=== PATIENT | male | born 1960 | race Caucasian/White ===

== ENCOUNTER 2018-10-26 07:51 | Outpatient (CLI) | payer OTHER ==
--- NOTE | 2018-10-26 11:14 | MRI ---
CERVICAL SPINE MRI NONCONTRAST: Indication: Right shoulder bursitis. Neck pain. Right upper extremity radicular pain. FINDINGS: There is no acute marrow edema, compression fracture, or significant subluxation. There is mild degen erative hypertrophy at the atlantodental articulation. No significant central canal stenosis at C1-2. C2-3 level reveals no high grade central canal or neural foraminal stenosis. C3-4: Mild broad based disc bulge effaces intrathecal sac without significant cord compromise. No hig h grade foraminal stenosis. C4-5: No significant compromise of the central canal or neural foramina. C5-6: No significant compromise of the central canal or neural foramina. C6-7: No significant compromise of the central canal or neural foramina. C7-T1: Minimal disc bulge. No significant central canal or neural foraminal stenosis. Evaluation of the cervical spine cord signal reveals no significant intramedullary abnormality or int rinsic expansile process. IMPRESSION: Mild degenerative disc disease of the cervical spine without associated central canal or neural talha inal stenosis of significance. POS: [place]
== END 2018-10-26 07:52 | disposition home or self-care (01) ==
LOC: SCSMRI 07:51
PROVIDERS: ATTEND Orthopaedic Surgery
DX: M75.51 Bursitis of right shoulder (principal); M50.30 Other cervical disc degeneration, unspecified cervical region
CPT/HCPCS: 72141

== ENCOUNTER 2019-01-27 00:27 | Outpatient (CLI) | payer OTHER ==
[2019-01-27 17:48] LABS: #Basophils 0.2 thou/uL (0.0-0.2); #Eosinphils 0.4 thou/uL (0.0-0.7); #Lymphocytes 4.2 thou/uL (1.20-3.40); #Monocytes 1.3 thou/uL (0.11-0.59); #Neutrophils 6.8 thou/uL (1.40-6.50); %Basophils 1.2 % (0.0-1.0); %Eosinophils 3.3 % (0.0-10.0); %Monocytes 9.8 % (0.0-10.0); %Neutrophils 52.7 % (42.0-75.0); Hemoglobin 14.6 g/dL (14.0-18.0); Mean Corpuscular HGB CONC 32.1 g/dL (32.0-36.0); Mean Corpuscular Hemoglobin 29.6 pg (27.0-31.0); Mean Corpuscular Volume 92.1 fL (78.0-98.0); Mean Platelet Volume 9.3 fL (7.4-10.4); Platelet Count 249 thou/uL (130-400); RBC Distribution Width 13.4 % (11.5-14.5); Red Blood Cell (RBC) Count 4.94 mill/uL (4.70-6.10); White Blood Cell (WBC) Count 12.8 thou/uL (4.8-10.8)
[2019-01-27 18:03] LABS: Anion Gap 16 mmol/L (10-20); BUN (Urea Nitrogen) 20 mg/dL (8.4-25.7); Calc. Creatinine Clearance 0 mL/min (70-130); Calcium 9.7 mg/dL (7.8-10.44); Carbon Dioxide 23 mmol/L (22-29); Chloride 105 mmol/L (98-107); Estimated GFR-MDRD 74; Glucose 85 mg/dL (70-105); Potassium 4.4 mmol/L (3.5-5.1); Sodium 140 mmol/L (136-145)
== END 2019-01-27 00:28 | disposition home or self-care (01) ==
LOC: LABBT 00:27
PROVIDERS: ATTEND Orthopaedic Surgery
DX: Z01.818 Encounter for other preprocedural examination (principal); G56.03 Carpal tunnel syndrome, bilateral upper limbs
CPT/HCPCS: 80048; 85025; 93005; 93010

== ENCOUNTER 2019-01-29 05:19 | Day surgery (SDC) | payer OTHER ==
[2019-01-27 17:17] VITALS: BMI 44.1
[2019-01-29] MEDS ORDERED: Fentanyl 100 MCG/2 ML VIAL ONE ×2 (06:32)
[2019-01-29] MEDS ORDERED: Lidocaine 1% (PF) 30 ML VIAL ONE (06:36)
[2019-01-29] MEDS ORDERED: Clindamycin/D5W 600 mg/50 ml Premix Bag ONE (06:49)
--- NOTE | 2019-01-29 10:09 | OP ---
DATE OF PROCEDURE: 01/29/2019 PREOPERATIVE DIAGNOSIS: Right-sided carpal and cubital tunnel syndromes. POSTOPERATIVE DIAGNOSIS: Right-sided carpal and cubital tunnel syndromes. PROCEDURES PERFORMED: 1. Right open carpal tunnel release. 2. Right open cubital tunnel release with ulnar nerve transposition. 3. Placement of long arm splint, right upper extremity. CREATIVE CONSULTANT: None. BLOOD LOSS: Minimal. COMPLICATIONS: None. ANESTHESIA: He did have a general anesthetic. DISPOSITION: He went to recovery room in stable condition. INDICATIONS: A 58-year-old male, who has severe right-sided cubital and carpal tunnel syndromes. At this time, he opted to have the screw released. DESCRIPTION OF PROCEDURE: After all appropriate consent forms were explained and signed, he was taken back to operating room, and at this time, he was given general anesthetic. Once the anesthesia was appropriate, a tourniquet was placed on the right arm. We then prepped and draped the right upper extremity in standard surgical fashion. We decided to start with the carpal tunnel and at this time, incision line was drawn out, was infiltrated with plain lidocaine. We then exsanguinated the limb and took the tourniquet up to 250 mmHg. Using loupe magnification, a 15 blade was used to incise down through skin. Bipolar cautery was then used to coagulate any brisk venous bleeding. We then placed a retractor and got down to the underlying transverse humeral ligament. A small hemostat was placed underneath the transverse humeral ligament to protect the underlying median nerve and a combination of 15 blade and scissors were used to transect the transverse carpal ligament. Once this was done, a moist Ray-Conor sponge was placed. Tourniquet was let down. Bipolar was used to coagulate any brisk venous bleeding. We then thoroughly irrigated our wound. We then closed the wound with multiple interrupted nylon sutures. A sterile hand dressing was then applied. We then turned our attention to the elbow. Incision line was drawn out and the limb was exsanguinated and the tourniquet was taken up to 250 mmHg. Again, a 10 blade was used to cut down through skin only. Bipolar was then used to create any brisk venous bleeding. Using scissors and loops, we then dissected out the ulnar nerve proximally into the brachium and distally to the first motor branch. The nerve was found to be free of any tumors or other issues. At this time, we then placed a sponge into the wound and let the tourniquet down. We then coagulated any brisk venous bleeding with the bipolar. We then thoroughly irrigated and dried our wound. We then closed our cubital tunnel with some interrupted Vicryl sutures so that the nerve could not fall back into it. We then used 2-0 Vicryl and nylon sutures to close the skin. Both the anterior and posterior flaps were infiltrated with plain lidocaine for postop pain relief as well. Once this was done, again, a sterile dressing was applied around the elbow. A copious amount of Webril was placed throughout the right upper extremity and a posterior splint was made for the right upper extremity. The patient then had a sling applied and he was awakened, taken to recovery room in stable condition. All counts were correct at the end of the case and he did receive preoperative IV antibiotics. Job ID: [id number]
[2019-01-29] MEDS ORDERED: HYDROcodone/Acetaminophen 5/325 mg Tablet ONE (10:53)
[2019-01-29] MEDS ORDERED: Lidocaine 1% PF 5 ML VIAL ONE (13:22)
[2019-01-29] MEDS ORDERED: Rocuronium Bromide 10 MG/ML (10ML VIAL) ONE (13:22)
[2019-01-29] MEDS ORDERED: PROPOFOL 200 MG/20 ML VIAL ONE (13:22)
[2019-01-29] MEDS ORDERED: ePHEDrine 50 MG/ML VIAL ONE (13:22)
[2019-01-29] MEDS ORDERED: Ondansetron PF 4 MG/2 ML Vial ONE (13:22)
[2019-01-29] MEDS ORDERED: PHENYLEPHRINE-NS 100 MCG/ML 10 ML SYRINGE ONE (13:22)
== END 2019-01-29 11:00 | disposition home or self-care (01) ==
LOC: SDC 05:19
PROVIDERS: ATTEND Orthopaedic Surgery
PROC: 01N43ZZ Release Ulnar Nerve, Percutaneous Approach (ICD-10-PCS; principal; 2019-01-29)
PROC: 01N50ZZ Release Median Nerve, Open Approach (ICD-10-PCS; principal; 2019-01-29)
DX: G56.01 Carpal tunnel syndrome, right upper limb (principal); G56.21 Lesion of ulnar nerve, right upper limb; E78.00 Pure hypercholesterolemia, unspecified; I10 Essential (primary) hypertension; E11.9 Type 2 diabetes mellitus without complications; Z79.82 Long term (current) use of aspirin; Z79.84 Long term (current) use of oral hypoglycemic drugs; Z79.899 Other long term (current) drug therapy; Z88.0 Allergy status to penicillin
CPT/HCPCS: J2001; J3010; J3490

== ENCOUNTER 2020-10-01 22:30 | Observation (INO) | payer OTHER ==
--- NOTE | 2020-10-01 23:02 | PDOC.FPRHP ---
- History of Present Illness Chief Complaint: Chest Pain History of Present Illness: Patient is a 60 year old, PMHx CVA (2015), DMII, HTN, transfer from [place] due to acute bilateral chest pain radiating to bilateral arms that started at about 7pm, lasted 40 min, severe with no accompanying N/V, diaphoresis or SOB. He n otes he had an elevated blood pressure at home of 200/110 at the same time as the chest pain. He states that the nitro patch he was given helped the pain. The pain is not exertional. He endorses chronic leg swelling. Denies fever/chills, recent infection or sick contact. - Allergies/Adverse Reactions Allergies Allergy/AdvReac Type Severity Reaction Status Date / Time amoxicillin Allergy Verified 10/02/20 00:13 - Home Medications Medication Instructions Recorded Confirmed Type RX: Aspirin [Ecotrin Regular 325 mg PO DAILY tab 12/03/16 01/27/19 Rx Strength] RX: Lisinopril [Zestril] 20 mg PO BID #60 tab 12/03/16 01/27/19 Rx Amlodipine [Norvasc] 5 mg PO BID 01/27/19 01/27/19 History Carvedilol 1 tab PO BID 01/27/19 01/27/19 History RX: Escitalopram Oxalate 10 mg PO DAILY 01/27/19 01/27/19 History RX: metFORMIN [Glucophage] 500 mg PO TID-WM 01/27/19 01/27/19 History Rosuvastatin [Crestor] 10 mg PO HS 01/27/19 01/27/19 History - History PMHx:Ischemic CVA 11/28/2016, HTN, DMII PSHx: L elbow surgery FHx: [place] in younger brother and grandfather Social: lives with friend, no smoking, alchohol or drugs - Review of Systems General: denies: fever/chills, weight/appetite/sleep changes Eyes: denies: eye pain, vision changes ENT: denies: nasal congestion Respiratory: denies: cough, congestion, shortness of breath Cardiovascular: reports: chest pain, edema. denies: palpitation, paroxysmal nocturnal dyspnea, orthopnea Gastrointestinal: denies: nausea, vomiting, diarrhea, constipation, abdominal pain Genitourinary: denies: incontinence, dysuria Skin: denies: rashes, lesions Musculoskeletal: denies: pain, tenderness Neurological: denies: numbness, syncope - Vital signs BP: 131/80, MAP: 97, Pulse: 89, Resp: 25, Temp: 98.1 (Oral), O2 sat: 97 on (Room Air), Wt: 104.3kg - Physical Exam Constitutional: NAD, awake, alert and oriented HEENT: normocephalic and atraumatic, PERRLA, EOMI Neck: supple, FROM Chest: other (mild chest wall TTP) Heart: RRR, normal S1/S2, no murmurs/rubs/gallops Lungs: CTAB, no respiratory distress, good air movement Abdomen: soft, non-tender, bowel sounds present Musculoskeletal: normal structure, normal tone, ROM grossly normal Neurological: no focal deficit Skin: no rash/lesions, good turgor Heme/Lymphatic: no unusual bruising or bleeding, no purpura Psychiatric: normal mood and affect, good judgment and insight, intact recent and remote memory FMR H&P: Results - EKG Interpretation EKG: NSR, no ST changes FMR H&P: A/P - Plan Typical Chest Pain Troponins x 2, .122, .121 Hx of elevated Trops .09 in 2016 EKG NSR, CXR unremarkable Heart Score 5 - will trend trops x 3 - Nitro for chest pain - NPO for stress test in the am - lipid panel and a1c ordered - continue to monitor on tele DANIELLE on CKD3a Creatinine 1.3, GFR 55 - will start mIVFs - recheck cmp in the am DMII - continue home metformin - mild SS - hypoglycemia protocol Hx Depression - continue home medications HLD ASCVD risk - 22.2% - will increase to high intensity statin - lipid panel ordered HTN - continue home medications HFpEF Echo from 2016 showing grade 1/3 diastolic dysfunction BNP nml - Will monitor I/Os Dispo: admit tele obs Code status: Full PCP: Stevan I have discussed this patient with Dr. Desir who is in agreement with this plan. FMR H&P: Upper Level - Plan Date/Time: 10/01/20 5992 I, Beth Doran MD, have evaluated this patient and agree with findings/plan as outlined by international logistics coordinator resident. Pertinent changes/additions are listed here. Lenore is a 60yo M who was transferred from [place] with CC of chest pain. He states chest pain started around 7pm, was located across chest and down B/l arms, relieved by nitro, not worse with exertion. He denies SOB, palpitations, NVD, diaphoresis, fever, cough. Denies sick contacts. Reports some mild swelling in LE but that this is normal for him. He states he had a similar pain about a month ago but this time it was much worse. He has a hx of stroke with RLE deficits. He denies any focal weakness, numbness or tingling. In the ER, patient was given 1mg/kg of lovenox, protonix, tylenol and nitro. His VS were always stable. EKG normal. Trop found to be indeterminant at 0.121. BUN/Cr were elevated from previous. BNP nml. Will admit patient to tele, obs for atypical chest pain, acs r/o. HEART score of 5. Will trend trops. AM stress test. DANIELLE. Will give LR and repeat labs in the AM. Dm2 - will monitor sugars and add SS. A1c pending. HLD - on rosuvastatin. Will need to increase to HIS based on ASCVD risk of 22.2%. Continue home medications for chronic conditions. Dispo: admit tele, obs Diet: NPO Code: FULL PCP: Stevan Case discussed with Dr. Desir. See international logistics coordinator note for full details. Addendum - Attending - Attending Attestation Date/Time: 10/01/20 3000 I personally evaluated the patient and discussed the management with Dr. Lucero/Espinoza I agree with the History, Examination, Assessment and Plan documented above with any addition or exceptions noted below. 60-year-old male past medical history of hypertension, hyperlipidemia, prior CVA with right-sided residual deficits, and a strong family history of coronary artery disease with fatal [place]. He presents with a history of chest pain that started at approximately 1930 this evening. described as a crushing chest pain that spread across to his upper chest and radiated into both of his arms and into his jaw. States pain is relieved with nitroglycerin. he also stated that he had an elevated blood pressure at home of 200/110 at the same time as the chest pain. no other complaints or concerns at this time. Exam is unremarkable. laboratory evaluation shows mild elevation troponin at 0.122 that trended to 0.121. EKG is normal. Chest x-ray is unremarkable. Given his risk factors and strong family history as well as a concerning story we will place under observation for inpatient cardiac stress test tomorrow. continue to trend troponin. EKG and nitroglycerin for chest pain. chronic medical problems as above. Observation, telemetry, less than 2 midnights.
[2020-10-01] MEDS ORDERED: Acetaminophen 325 MG TAB PO PRN (23:21)
[2020-10-01] MEDS ORDERED: Ondansetron ODT 4 MG TAB PO PRN (23:21)
[2020-10-01] MEDS ORDERED: Dextrose 50% Abboject 50 ML SYRINGE SLOW IVP PRN (23:21)
[2020-10-01] MEDS ORDERED: Dextrose 5% in Water 1,000 ML IV PRN (23:21)
[2020-10-01] MEDS ORDERED: HumaLOG 300 UNITS/3 ML VIAL SC PRN ×2 (23:21)
[2020-10-01] MEDS ORDERED: Lactated Ringer's 1,000 ML IV SCH (23:45)
[2020-10-02] MEDS ORDERED: Nitroglycerin 0.4 MG TAB (25 Tab Bottle) SL PRN (01:08)
[2020-10-02 03:04] VITALS: BP 126/73; TEMP 98.1
[2020-10-02 03:10] LABS: #Basophils 0.1 thou/uL (0.0-0.2); #Eosinphils 0.5 thou/uL (0.0-0.7); #Lymphocytes 5.1 thou/uL (1.20-3.40); #Monocytes 1.3 thou/uL (0.11-0.59); #Neutrophils 5.5 thou/uL (1.40-6.50); %Basophils 1.2 % (0.0-1.0); %Eosinophils 3.7 % (0.0-10.0); %Lymphocytes 40.9 % (21.0-51.0); %Monocytes 10.3 % (0.0-10.0); Hemoglobin 13.3 g/dL (14.0-18.0); Mean Corpuscular HGB CONC 33.4 g/dL (32.0-36.0); Mean Corpuscular Volume 89.7 fL (78.0-98.0); Mean Platelet Volume 8.6 fL (7.4-10.4); Platelet Count 268 thou/uL (130-400); RBC Distribution Width 13.8 % (11.5-14.5); Red Blood Cell (RBC) Count 4.45 mill/uL (4.70-6.10); White Blood Cell (WBC) Count 12.6 thou/uL (4.8-10.8)
[2020-10-02 03:33] LABS: Anion Gap 13 mmol/L (10-20); BUN (Urea Nitrogen) 23 mg/dL (8.4-25.7); Calc. Creatinine Clearance 0 mL/min (70-130); Carbon Dioxide 22 mmol/L (23-31); Chloride 110 mmol/L (98-107); Estimated GFR-MDRD 62; Glucose 94 mg/dL (80-115); Potassium 4.4 mmol/L (3.5-5.1); Sodium 141 mmol/L (136-145)
[2020-10-02 03:35] LABS: Troponin I 0.249 ng/mL (< 0.028)
--- NOTE | 2020-10-02 05:53 | PDOC.FPRHP ---
- Allergies/Adverse Reactions Allergies Allergy/AdvReac Type Severity Reaction Status Date / Time amoxicillin Allergy Verified 10/02/20 00:13 - Home Medications Medication Instructions Recorded Confirmed Type Aspirin [Ecotrin Regular Strength] 325 mg PO DAILY tab 12/03/16 01/27/19 Rx Lisinopril [Zestril] 20 mg PO BID #60 tab 12/03/16 01/27/19 Rx Amlodipine [Norvasc] 5 mg PO BID 01/27/19 01/27/19 History Carvedilol 1 tab PO BID 01/27/19 01/27/19 History Escitalopram Oxalate 10 mg PO DAILY 01/27/19 01/27/19 History Rosuvastatin [Crestor] 10 mg PO HS 01/27/19 01/27/19 History metFORMIN [Glucophage] 500 mg PO TID-WM 01/27/19 01/27/19 History - History PMHx: PSHx: FHx: Social: - Vital signs BP: [] HR: [] RR: [] Tmax: [] Pox: []% on [] Wt: [] FMR H&P: Results - Labs Result Diagrams: 10/02/20 02:51 10/02/20 02:51 Lab results: WBC 12.6 thou/uL (4.8-10.8) H 10/02/20 02:51 Hgb 13.3 g/dL (14.0-18.0) L 10/02/20 02:51 Hct 39.9 % (42.0-52.0) L 10/02/20 02:51 MCV 89.7 fL (78.0-98.0) 10/02/20 02:51 Plt Count 268 thou/uL (130-400) 10/02/20 02:51 Neutrophils % 44.0 % (42.0-75.0) 10/02/20 02:51 Sodium 141 mmol/L (136-145) 10/02/20 02:51 Potassium 4.4 mmol/L (3.5-5.1) 10/02/20 02:51 Chloride 110 mmol/L (98-107) H 10/02/20 02:51 Carbon Dioxide 22 mmol/L (23-31) L 10/02/20 02:51 BUN 23 mg/dL (8.4-25.7) 10/02/20 02:51 Creatinine 1.19 mg/dL (0.7-1.3) 10/02/20 02:51 Glucose 94 mg/dL (80-115) 10/02/20 02:51 Calcium 9.0 mg/dL (7.8-10.44) 10/02/20 02:51 FMR H&P: Upper Level - Plan Date/Time: 10/02/20 0553 I, [], have evaluated this patient and agree with findings/plan as outlined by equine internship resident. Pertinent changes/additions are listed here.
--- NOTE | 2020-10-02 06:21 | PDOC.FM ---
- Subjective Subjective: Patient is resting comfortable in bed this AM. Denies any additional episodes of CP. - Objective MAR Reviewed: Yes Vital Signs & Weight: Vital Signs (12 hours) Temp Pulse Resp BP Pulse Ox 10/02/20 03:03 98.1 F 72 16 126/73 96 10/01/20 23:21 97.9 F 79 16 138/82 Result Diagrams: 10/02/20 02:51 10/02/20 02:51 Phys Exam - Physical Examination Constitutional: NAD Neck: full ROM Respiratory: no wheezing, clear to auscultation bilateral Cardiovascular: RRR, no significant murmur Gastrointestinal: soft, non-tender Musculoskeletal: no edema, pulses present Psychiatric: normal affect, A&O x 3 Skin: normal turgor Dx/Plan - Plan Plan: Typical Chest Pain 2/2 NSTEMI Troponins .122, .121, .249, .334 Hx of elevated Trops .09 in 2016 EKG NSR, CXR unremarkable - Cardiology consulted, appreciate the recs - continue therapeutic lovenox - continue home BP meds, but hold Carvedilol as patient will likely get stress test - Hydralazine PRN SBP >160 - Nitro PRN for chest pain - continue home ASA - lipid panel and a1c ordered - continue to monitor on tele DANIELLE on CKD3a, resolved Creatinine 1.3, GFR 55 on admission - will start mIVFs DMII - continue home metformin - mild SS - hypoglycemia protocol Hx Depression - continue home medications HLD ASCVD risk - 22.2% - will increase to high intensity statin - lipid panel ordered HTN - continue home medications HFpEF Echo from 2016 showing grade 1/3 diastolic dysfunction BNP nml - Will monitor I/Os Dispo: admit tele obs, anticipated LOS <48 hours Code status: Full PCP: Stevan Addendum - Attending - Attending Attestation Date/Time: 10/02/20 6449 I personally evaluated the patient and discussed the management with Dr. Paz I agree with the History, Examination, Assessment and Plan documented above with any addition or exceptions noted below - Patient wihtout complaints currently. No chest pain now. Afebrile VSS. A/P: 1) NSTEMI - troponins continue to rise. Continue therapeutic lovenox and will consult cardiology for further evaluation. Continue ASA and statin. 2) DM- continue home meds and SSI. 3) HTN - BP stable. Continue home meds.
[2020-10-02 07:14] LABS: CKMB 5.5 ng/mL (0-6.6)
[2020-10-02] MEDS ORDERED: hydrALAZINE 20 MG/ML VIAL SLOW IVP PRN (08:30)
[2020-10-02] MEDS ORDERED: Amlodipine 5 MG TAB ONE (08:33)
[2020-10-02] MEDS ORDERED: Lisinopril 10 MG TAB ONE (08:33)
[2020-10-02] MEDS ORDERED: Enoxaparin Sodium 80 MG/0.8 ML SYRINGE ONE (08:34)
[2020-10-02] MEDS ORDERED: Enoxaparin Sodium 40 MG/0.4 ML SYRINGE ONE (08:34)
[2020-10-02] MEDS ORDERED: Aspirin 325 mg Enteric Coated Tablet PO SCH (09:00)
[2020-10-02] MEDS ORDERED: Escitalopram Oxalate 10 mg Tablet PO SCH (09:00)
[2020-10-02] MEDS ORDERED: Enoxaparin Sodium 40 MG/0.4 ML SYRINGE SC SCH ×2 (09:00→09:30)
[2020-10-02] MEDS ORDERED: Enoxaparin Sodium 120 MG/0.8 ML SYRINGE SC SCH (09:00)
[2020-10-02] MEDS ORDERED: Carvedilol 6.25 MG TAB PO SCH (09:00)
[2020-10-02] MEDS ORDERED: Lisinopril 20 MG TAB PO SCH ×2 (09:40→21:00)
[2020-10-02] MEDS ORDERED: Amlodipine 5 MG TAB PO SCH ×2 (09:45→21:00)
[2020-10-02] MEDS ORDERED: Aspirin 325 MG TAB ONE (10:13)
[2020-10-02] MEDS ORDERED: metFORMIN 500 MG TAB PO SCH (12:00)
[2020-10-02 13:03] LABS: SARS-CoV-2 MS2 Positive; SARS-CoV-2 N Gene Negative; SARS-CoV-2 S Gene Negative; SARS-CoV-2 by NAA Not Detected (NotDetected); SARS-CoV-2 orf1ab Negative
[2020-10-02] MEDS ORDERED: Atorvastatin Calcium 40 MG TAB PO SCH (21:00)
--- NOTE | 2020-10-06 10:25 | SS ---
DATE OF ADMISSION: 10/01/2020 DATE OF DISCHARGE: 10/02/2020 RESIDENT: DIMITRY NUNN MD ADMITTING ATTENDING: DR. LANDA DISCHARGE ATTENDING: DR. SAMPSON CHIEF COMPLAINT: Chest pain. HISTORY OF PRESENT ILLNESS: The patient is a 60-year-old male with past medical history of CVA in 2016, type 2 diabetes, hypertension, who presented to the ED after being transferred from [place] with chief complaint of bilateral chest pain radiating to his bilateral arms. The pain started about 7 p.m., lasted 40 minutes, and he said it was severe. He had no accompanying nausea, vomiting, diaphoresis, or shortness of breath. He said that he took his blood pressure at home and the reading was 200/110, prompting him to come to the ER. He states that the nitroglycerin patch he was given in the ED did help with the pain. He denies any exertional chest pain, and this pain occurred at rest. PAST MEDICAL HISTORY/PAST SOCIAL HISTORY/FAMILY HISTORY/PAST SURGICAL HISTORY: 1. Ischemic CVA in 2016, hypertension, diabetes type 2. 2. Left elbow surgery. 3. [place] in younger brother and grandfather. 4. Lives at home with friend. Denies smoking, alcohol, or drug use. ADMISSION MEDICATIONS: The patient received 325 mg of aspirin, Lovenox 120 mg, escitalopram, nitroglycerin patch. REVIEW OF SYSTEMS: The patient denied fever, chills, weight changes, vision changes, recent infections or sick contacts, or past history of [place]. PHYSICAL EXAMINATION: Negative. HOSPITAL COURSE: In the ED, EKG showed normal sinus rhythm. Troponin was trended, initial was 0.122, which increased to 0.249, and final reading was 0.334. Blood pressure was elevated from 130 to 170 systolic. However, all other vitals were stable and the patient continued to deny any additional episodes of chest pain. Cardiology was consulted, but did not see him because he was transferred to the [facility]. The patient agreed to be transferred to receive further care. DISCHARGE DIAGNOSES: 1. Chest pain secondary to non-ST elevation myocardial infarction. 2. Acute kidney injury on chronic kidney disease, stage 3a. 3. Type 2 diabetes. 4. History of depression. 5. Hyperlipidemia. 6. Hypertension. 7. Heart failure with preserved ejection fraction. DISCHARGE MEDICATIONS: Continue home medications of: 1. Amlodipine 5 mg p.o. b.i.d. 2. Aspirin 325 mg p.o. daily. 3. Carvedilol 6.25 mg p.o. b.i.d. 4. Escitalopram 10 mg p.o. daily. 5. Lisinopril 20 mg p.o. b.i.d. 6. Metformin 500 mg p.o. t.i.d. New medications include atorvastatin 40 mg p.o. at bedtime. DISPOSITION: Stable. DISCHARGE LOCATION: 1. Location: [facility]. 2. Diet: Heart healthy diet. 3. Activity: Activity as tolerated. 4. Followup: The patient should follow any recommendations given by Cardiology at the [facility], and follow up with Dr. Calles in clinic within the next week. Job ID: [id number] MTDD
--- NOTE | 2020-10-07 15:31 | EKG ---
Test Reason : Blood Pressure : / mmHG Vent. Rate : 089 BPM Atrial Rate : 089 BPM P-R Int : 174 ms QRS Dur : 086 ms QT Int : 370 ms P-R-T Axes : 047 -03 074 degrees QTc Int : 450 ms Normal sinus rhythm Normal ECG Confirmed by CESILIA ZUNIGA ([id number]), editor at large BAILEY HOWARD ([id number]) on 10/07/2020 3:31:28 PM Referred By: Confirmed By:CESILIA Scott
== END 2020-10-02 12:21 | disposition admitted as inpatient to this hospital (09) ==
LOC: ERS 22:30 → ERHOLD 23:06
PROVIDERS: ADMIT Family Medicine; ATTEND Family Medicine
DX: I21.4 Non-ST elevation (NSTEMI) myocardial infarction (principal); I13.0 Hypertensive heart and chronic kidney disease with heart failure and stage 1 through stage 4 chronic kidney disease, or unspecified chronic kidney disease; E11.22 Type 2 diabetes mellitus with diabetic chronic kidney disease; N18.31 Chronic kidney disease, stage 3a; I50.30 Unspecified diastolic (congestive) heart failure; N17.9 Acute kidney failure, unspecified; E78.5 Hyperlipidemia, unspecified; F32.9 Major depressive disorder, single episode, unspecified; Z79.82 Long term (current) use of aspirin; Z79.84 Long term (current) use of oral hypoglycemic drugs; Z79.899 Other long term (current) drug therapy; Z82.49 Family history of ischemic heart disease and other diseases of the circulatory system; Z86.73 Personal history of transient ischemic attack (TIA), and cerebral infarction without residual deficits; Z88.0 Allergy status to penicillin; Z20.828 Contact with and (suspected) exposure to other viral communicable diseases
CPT/HCPCS: 36415; 36416; 80048; 82553; 84484; 85025; 87635; 93005; J1650; U0003